=== PATIENT | male | born 1955 | race Caucasian/White ===

== ENCOUNTER → 2019-12-11 | Day surgery (SDC) | payer MEDICARE, OTHER ==
[2019-12-06 11:10] LABS: BASOPHILS # (AUTO) 0.1 (0.0-0.1); BASOPHILS % 0.7 % (0.0-1.0); EOSINOPHILS # (AUTO) 0.5 (0.0-0.4); EOSINOPHILS % 5.4 % (0.0-6.0); HEMATOCRIT 40.5 % (38.2-49.6); HEMOGLOBIN 12.9 g/dL (14.0-18.0); LYMPHOCYTES # (AUTO) 1.7 (1.0-3.2); LYMPHOCYTES % 19.7 % (18.0-39.1); MEAN CORPUSCULAR HEMOGLOBIN 27.3 pg (28-32); MEAN CORPUSCULAR HGB CONC 31.9 g/dL (31-35); MEAN CORPUSCULAR VOLUME 85.8 fL (81-99); MONOCYTES # (AUTO) 0.6 (0.2-0.8); MONOCYTES % 7.3 % (4.4-11.3); NEUTROPHILS # (AUTO) 5.8 (2.1-6.9); NEUTROPHILS % 66.4 % (38.7-80.0); PLATELET COUNT 255 x10e3/uL (140-360); RED BLOOD COUNT 4.72 x10e6/uL (4.3-5.7); RED CELL DISTRIBUTION WIDTH 15.3 % (11.7-14.4)
--- NOTE | 2019-12-06 12:15 | Diagnostic Imaging Report ---
EXAM: CHEST 2 VIEWS DATE: 12/06/2019 11:15 AM INDICATION: Preoperative evaluation COMPARISON: 06/06/2019 FINDINGS: The trachea is midline. There are mildly increased bibasilar opacity suggestive of atelectasis. There is no evidence for large focal consolidation, pneumothorax, or significant pleural effusion. The cardiomediastinal silhouette is stable in appearance. No acute osseous abnormality is identified. IMPRESSION: No acute cardiopulmonary process identified. Signed by: Dr. Savage Fish MD on 12/06/2019 12:11 PM
[~2019-12-11] MED LIST: AMLODIPINE-ATO1 EAC2 PO; ARNUITY ELLIP100 MCG; ATORVASTATIN CA20 MG PO; BUPIVACAINE 0.25%/EPI 30ML SDV INJ ONE; CLINDAMYCIN PHOS 900MG/ 50ML 50 ML IV ONE; HYDRALAZINE HCL 20 MG/ML VIAL ONE; JALYN 0.5-0.41 EACH PO; LIDOCAINE HCL 2% LOCAL INJ 5 ML SDV VIAL INJ ONE; LOSARTAN POTASS50 MG PO; ONDANSETRON HCL INJ 2MG/ML 2ML 2 MG/ML VIAL ONE; PHENYLEPHRINE HCL 1% 10 MG/ML VIAL ONE; PROPOFOL IV EMULSION 10 MG/ML 20 ML VIAL ONE; SEVOFLURANE INHAL SOLN 250 ML PEN BTL ONE
[2019-12-11 09:25] VITALS: BP 169/94
--- NOTE | 2019-12-12 14:18 | Operative Report ---
DATE OF PROCEDURE: 12/11/2019 SURGEON: Quentin Norwood MD PREOPERATIVE DIAGNOSES: 1. Right knee medial meniscus tear. 2. Right knee degenerative joint disease of the knee. POSTOPERATIVE DIAGNOSES: 1. Right knee medial meniscus tear. 2. Right knee degenerative joint disease of the knee. OPERATIONS/PROCEDURES PERFORMED: The patient underwent right knee examination under anesthesia, right knee arthroscopy, right knee partial medial meniscectomy, right knee chondroplasty of the patella, the trochlea, the medial femoral condyle, the medial tibial plateau, the lateral femoral condyle, and lateral tibial plateau. SALES OPERATIONS SPECIALIST: There was no social service assistant. ANESTHESIA: General endotracheal intubation anesthesia. IV FLUIDS: Per the anesthesia record. BLOOD LOSS: Minimal. BRIEF DESCRIPTION OF THE PATIENT'S OPERATIVE PROCEDURE: Mr. Bazzi was taken to the operating room and placed in supine position on the operating table. Following induction of general anesthesia as well as the endotracheal intubation, the patient's right lower extremity was examined under anesthesia. He was found to have a mild effusion within the knee joint, but otherwise ligamentously stable knee. The patient's lower extremity was prepped and draped in standard surgical fashion. A two-port technique was used to provide this patient arthroscopic evaluation of the knee joint. Examination of suprapatellar pouch, and medial and lateral gutters found no evidence of loose bodies. There was, however, evidence of chondromalacia of the patellar and trochlear surfaces. Scope was then advanced to medial compartment. Examination of the medial compartment demonstrated a tear of the posterior horn and root of the medial meniscus. There was also chondromalacia of the articulating surfaces. A combination of biting forceps and motorized shaver used to resect the torn portion of meniscus. Chondroplasties of the medial femoral condyle and medial tibial plateau were performed at this time. Scope was advanced to the intercondylar notch and the anterior cruciate ligament was identified and found to be intact. Scope was advanced to the lateral compartment. There was chondromalacia of the articulating surfaces. A chondroplasty of the lateral femoral condyle and lateral tibial plateau were performed at this time. The scope was then placed in suprapatellar pouch and chondroplasties of the patellar and trochlear were performed. The knee was deflated with sterile normal saline. Each of the portal sites were closed using 4-0 nylon suture. The portal sites as well as the knee itself were then injected with 0.5% Marcaine with epinephrine. Sterile dressings were applied. The patient was awakened and taken to Postanesthesia Care Unit in stable condition. MD IZAIAH Ulrich/TRACY /[id number]
== END | disposition home or self-care (01) ==
LOC: OR 05:00
PROVIDERS: ATTEND Specialist
DX: S83.221A Peripheral tear of medial meniscus, current injury, right knee, initial encounter (principal); M17.11 Unilateral primary osteoarthritis, right knee; M22.41 Chondromalacia patellae, right knee; G47.33 Obstructive sleep apnea (adult) (pediatric); E78.5 Hyperlipidemia, unspecified; E66.9 Obesity, unspecified; M80.051A Age-related osteoporosis with current pathological fracture, right femur, initial encounter for fracture; E66.01 Morbid (severe) obesity due to excess calories; I10 Essential (primary) hypertension; X58.XXXA Exposure to other specified factors, initial encounter; Z88.0 Allergy status to penicillin; Z01.810 Encounter for preprocedural cardiovascular examination; Z01.812 Encounter for preprocedural laboratory examination; Z01.818 Encounter for other preprocedural examination; Z11.59 Encounter for screening for other viral diseases; Z79.82 Long term (current) use of aspirin; Z68.41 Body mass index [BMI] 40.0-44.9, adult
CPT/HCPCS: 29881; 36415; 71046; 85025; 93005; J0360; U0002; J2001; J2370; J2405

== ENCOUNTER 2020-01-17 07:00 | Outpatient (RCR) | payer MEDICARE ==
[~2020-01-17 07:00] MED LIST changes: -BUPIVACAINE 0.25%/EPI 30ML SDV INJ ONE; -CLINDAMYCIN PHOS 900MG/ 50ML 50 ML IV ONE; -HYDRALAZINE HCL 20 MG/ML VIAL ONE; -LIDOCAINE HCL 2% LOCAL INJ 5 ML SDV VIAL INJ ONE; -ONDANSETRON HCL INJ 2MG/ML 2ML 2 MG/ML VIAL ONE; -PHENYLEPHRINE HCL 1% 10 MG/ML VIAL ONE; -PROPOFOL IV EMULSION 10 MG/ML 20 ML VIAL ONE; -SEVOFLURANE INHAL SOLN 250 ML PEN BTL ONE
== END 2020-01-20 ==
LOC: PT 07:00
PROVIDERS: ATTEND Specialist
DX: M25.561 Pain in right knee (principal); M25.661 Stiffness of right knee, not elsewhere classified; M62.81 Muscle weakness (generalized); R26.2 Difficulty in walking, not elsewhere classified

== ENCOUNTER 2020-02-11 13:00 | Outpatient (RCR) | payer MEDICARE | END 2020-02-19 | LOC: PT 13:00 | PROVIDERS: ATTEND Specialist | DX: M25.561 Pain in right knee (principal); M25.661 Stiffness of right knee, not elsewhere classified; M62.81 Muscle weakness (generalized); R26.2 Difficulty in walking, not elsewhere classified | CPT/HCPCS: 97139 ==

== ENCOUNTER 2020-04-17 07:00 | Outpatient (RCR) | payer MEDICARE | END 2020-04-20 | LOC: PT 07:00 | PROVIDERS: ATTEND Podiatrist Foot & Ankle Surgery | DX: M76.62 Achilles tendinitis, left leg (principal); M62.81 Muscle weakness (generalized); R26.2 Difficulty in walking, not elsewhere classified ==

== ENCOUNTER 2020-05-01 07:00 | Outpatient (RCR) | payer MEDICARE | END 2020-05-21 | LOC: PT 07:00 | PROVIDERS: ATTEND Podiatrist Foot & Ankle Surgery | DX: M76.62 Achilles tendinitis, left leg (principal); M62.81 Muscle weakness (generalized); R26.2 Difficulty in walking, not elsewhere classified | CPT/HCPCS: 97139 ==

== ENCOUNTER → 2020-06-08 | Day surgery (SDC) | payer MEDICARE ==
[2020-06-03 10:21] LABS: BASOPHILS % 0.5 % (0.0-1.0); EOSINOPHILS # (AUTO) 0.4 (0.0-0.4); EOSINOPHILS % 5.5 % (0.0-6.0); HEMOGLOBIN 13.8 g/dL (14.0-18.0); LYMPHOCYTES # (AUTO) 1.5 (1.0-3.2); LYMPHOCYTES % 19.5 % (18.0-39.1); MEAN CORPUSCULAR HEMOGLOBIN 27.4 pg (28-32); MEAN CORPUSCULAR HGB CONC 32.1 g/dL (31-35); MEAN CORPUSCULAR VOLUME 85.5 fL (81-99); MONOCYTES # (AUTO) 0.7 (0.2-0.8); MONOCYTES % 9.5 % (4.4-11.3); NEUTROPHILS # (AUTO) 4.8 (2.1-6.9); NEUTROPHILS % 64.7 % (38.7-80.0); PLATELET COUNT 247 x10e3/uL (140-360); RED BLOOD COUNT 5.03 x10e6/uL (4.3-5.7)
[2020-06-03 10:35] LABS: INR 0.92; PARTIAL THROMBOPLASTIN TIME 31.4 seconds (23.8-35.5); PROTHROMBIN TIME 12.9 seconds (11.9-14.5)
[2020-06-03 10:52] LABS: ALBUMIN 3.4 g/dL (3.5-5.0); ALBUMIN/GLOBULIN RATIO 1.1 (0.8-2.0); ANION GAP 11.2 mmol/L (8-16); CALCIUM 8.7 mg/dL (8.4-10.2); CHOL/HDL RATIO 3.2 (3.9-4.7); CREATININE, SERUM 1.26 mg/dL (0.72-1.25); POTASSIUM 4.2 mmol/L (3.5-5.1)
[~2020-06-08] VITALS: Ht 182.9 cm; Wt 147.4 kg
[2020-06-08] VITALS (9 sets, daily range): BP systolic 157–182; BP diastolic 87–99
[~2020-06-08] MED LIST changes: -ARNUITY ELLIP100 MCG; +ARNUITY ELLIP100 MCG INH; +ASPIRIN EC81 MG PO; +CALCIUM PO; +CARVEDILOL12.5 MG PO; +FENTANYL CITRATE/PF 100MCG/2 ML INJ ONE; +GLUCOSAMINE1000 MG PO; +HEPARIN SOD/SOD CHLORIDE 2,000 ML ONE; +IOPAMIDOL 370 MG/ML 200 ML INFUS..BTL INJ ONE; +LIDOCAINE HCL 2% LOCAL 20 ML VIAL ONE; +MIDAZOLAM HCL 2 MG/2 ML VIAL ONE; +NAPROXEN250 MG PO; +ONE DAILY MEN'1 EAC1 PO; +PROVENTIL HFA6.7 GM INH; +SODIUM CHLORIDE 0.9% 1000ML 1,000 ML ONE; +VITAMIN D3125 MCG PO
== END | disposition home or self-care (01) ==
LOC: CATH LAB 08:19
PROVIDERS: ATTEND Internal Medicine Cardiovascular Disease
DX: I25.119 Atherosclerotic heart disease of native coronary artery with unspecified angina pectoris (principal); I11.0 Hypertensive heart disease with heart failure; I50.23 Acute on chronic systolic (congestive) heart failure; R94.39 Abnormal result of other cardiovascular function study; I71.2 Thoracic aortic aneurysm, without rupture; E78.5 Hyperlipidemia, unspecified; J44.9 Chronic obstructive pulmonary disease, unspecified; E66.01 Morbid (severe) obesity due to excess calories; Z88.0 Allergy status to penicillin; Z01.812 Encounter for preprocedural laboratory examination; Z20.822 Contact with and (suspected) exposure to COVID-19; Z79.82 Long term (current) use of aspirin; Z82.49 Family history of ischemic heart disease and other diseases of the circulatory system
CPT/HCPCS: 36415; 76937; 80053; 80061; 85025; 85610; 85730; 93458; C1769; C1887; J2001; J2250; J3010; J7030; Q9967; U0002; 99152